=== PATIENT | male | born 1935 | race Caucasian/White ===

== ENCOUNTER 2017-01-25 08:53 | Outpatient (CLI) | payer MEDICARE, OTHER ==
[~2017-01-25] VITALS: Ht 177.8 cm; Wt 87.1 kg
[2017-01-25 09:07] VITALS: BP 134/74
[2017-01-25] MEDS ORDERED: ATOR10TA66 PO (09:14)
[2017-01-25 09:54] LABS: BILIRUBIN,URINE NEGATIVE (NEGATIVE); KETONES,URINE NEGATIVE (NEGATIVE); LEUKOCYTE ESTERASE ,URINE NEGATIVE (NEGATIVE); NITRITE,URINE NEGATIVE (NEGATIVE); PH,URINE 5 (5-9); PROTEIN,URINE 1+ (NEGATIVE); UROBILINOGEN,URINE NORMAL (NORMAL)
[2017-01-25 10:03] LABS: SQUAMOUS EPITHELIAL CELL,UR RARE /HPF; WBC,URINE RARE /HPF
--- NOTE | 2017-01-25 10:39 | Diagnostic Imaging Report ---
INDICATION: Preoperative therapy. EXAMINATION: PA and lateral chest. FINDINGS: The heart size and pulmonary vascularity are normal. The lungs are clear. There are no effusions or pneumothoraces. IMPRESSION: Negative chest. Dictated by: Dictated on workstation # [id number]
== END 2017-01-25 09:45 | disposition home or self-care (01) ==
LOC: EDBD → PREOP 08:53 → EDUNIT# 09:00 → PREOP 09:45
PROVIDERS: ATTEND Radiology Radiation Oncology
DX: Z01.811 Encounter for preprocedural respiratory examination (principal); Z01.812 Encounter for preprocedural laboratory examination; Z11.2 Encounter for screening for other bacterial diseases; C61 Malignant neoplasm of prostate
CPT/HCPCS: 71020; 81000; 87081

== ENCOUNTER 2017-02-01 10:57 | Day surgery (SDC) | payer MEDICARE, OTHER ==
[~2017-02-01] VITALS: Ht 177.8 cm; Wt 87.1 kg
[~2017-02-01 10:57] MED LIST: ATOR10TA66 PO
[2017-02-01] MEDS ORDERED: LEVOFLOXACIN 500 MG/100 ML IV 100 ML ONE (11:15)
[2017-02-01 11:30] VITALS: BP 140/77
[2017-02-01] MEDS ORDERED: LEVOFLOXACIN 500 MG/D5W 100 ML (PRE-MIX) IV ONE (11:30)
[2017-02-01] MEDS ORDERED: FAMOTIDINE 20MG/2ML IV (PEPCID) IV ONE (11:45)
[2017-02-01] MEDS ORDERED: proPOfol 200 MG/20 ML (DIPRIVAN) VIAL IV ONE (12:10)
[2017-02-01] MEDS ORDERED: MIDAZOLAM 2 MG/2 ML (VERSED) VIAL ONE (12:11)
[2017-02-01] MEDS ORDERED: DEXAMETHASONE PF 10 MG/ML (DECADRON) VIAL ONE (12:11)
[2017-02-01] MEDS ORDERED: ONDANSETRON 4 MG/2 ML (SDV) Z0FRAN ONE (12:11)
[2017-02-01] MEDS ORDERED: fentaNYL INJECTION 100 MCG/2 ML AMP ONE (12:11)
[2017-02-01] MEDS: LACTATED RINGERS 1,000 ML IV PRN ×2 (12:15→14:04)
--- NOTE | 2017-02-01 12:15 | Progress Note-Pre Operative ---
Pre-Operative Progress Note H&P Reviewed The H&P was reviewed, patient examined and no changes noted. Date Seen by Provider: Feb 01, 2017 Time Seen by Provider: 11:55 Date H&P Reviewed: Feb 01, 2017 Time H&P Reviewed: 11:55 Pre-Operative Diagnosis: Prostate cancer cT1c, PSA 6.3, Premium 7 (3+4) MYA VELASCO MD Feb 01, 2017 12:15
--- NOTE | 2017-02-01 12:19 | Discharge Inst-Simple/Standard ---
Discharge Inst-Standard Discharge Medications New, Converted or Re-Newed RX: [facility] Patient Instructions/Follow Up Plan of Care/Instructions/FU: 1) Keep follow up appointment with Dr. Bautista 2) Keep follow up appointment at [facility] 03/01/17 at 10:00 a.m. Activity as Tolerated: Yes Discharge Diet: No Restrictions MYA VELASCO MD Feb 01, 2017 12:19
[2017-02-01] MEDS ORDERED: ACET1TAB43 PO (12:21)
[2017-02-01] MEDS ORDERED: CIPR-226 PO (12:21)
[2017-02-01] MEDS ORDERED: MEPERIDINE (DEMEROL) INJ 50 MG/ML IVP PRN (14:15)
[2017-02-01] MEDS ORDERED: ONDANSETRON 4 MG/2 ML (SDV) Z0FRAN IVP PRN (14:15)
[2017-02-01] MEDS ORDERED: morphine INJ 10 MG/ML 1ML (SYR OR VIAL) IVP PRN (14:15)
--- NOTE | 2017-02-01 15:56 | Diagnostic Imaging Report ---
EXAMINATION: Intraoperative radiograph of the pelvis. INDICATION: Prostate cancer. FINDINGS: The fluoroscopy provided was 11 seconds. 25 cc of contrast was also utilized. IMPRESSION: The provided image demonstrates fiducial markers projecting over the area of the prostate gland. Dictated by: Dictated on workstation # [id number]
[2017-02-01 16:05] VITALS: BP 128/74
[2017-02-01 16:35] VITALS: BP 121/69
--- NOTE | 2017-02-01 16:44 | Progress Note-Post Operative ---
Post-Operative Progess Note Surgeon (s)/[employer] Worker (s) Surgeon MYA VELASCO MD [employer] Work[employer]: Jackie HERBERT MD Pre-Operative Diagnosis Prostate cancer cT1c, PSA 6.3, [place] 7 (3+4) Post-Operative Diagnosis Same as pre-op Procedure & Operative Findings Date of Procedure 02/01/17 Procedure Performed/Findings 115 Gy (100%) Cesium 131 permanent prostate seed implant with cystogram and insertion of bio-degradable hydrogel into the prostate-rectal space utilizing the SpaceOAR system Prostate volume 23.8 cc Anesthesia Type General Estimated Blood Loss Estimated blood loss (mL): Minimal Specimens/Packing Specimens Removed N/A Packing: N/A MYA VELASCO MD Feb 01, 2017 16:44
[2017-02-01 17:05] VITALS: BP 121/69
== END 2017-02-01 17:05 | disposition home or self-care (01) ==
LOC: EDBD → SDC 10:57
PROVIDERS: ATTEND Radiology Radiation Oncology
DX: C61 Malignant neoplasm of prostate (principal); E78.5 Hyperlipidemia, unspecified; N18.9 Chronic kidney disease, unspecified; K21.9 Gastro-esophageal reflux disease without esophagitis; Z79.899 Other long term (current) drug therapy
CPT/HCPCS: 0438T; 55875; 76965; 77290; 77318; 77332; 77336; 77470; 77778; 77790

== ENCOUNTER 2017-03-01 09:58 | Outpatient (RCR) | payer MEDICARE, OTHER ==
[~2017-03-01 09:58] MED LIST changes: +ACET1TAB43 PO; +CIPR-226 PO
== END 2017-05-20 | disposition home or self-care (01) ==
LOC: EDBD → ONC 09:58
PROVIDERS: ATTEND Radiology Radiation Oncology
DX: Z51.0 Encounter for antineoplastic radiation therapy (principal); C61 Malignant neoplasm of prostate
CPT/HCPCS: 77290; 77295; 77336